=== PATIENT | male | born 1980 | race Caucasian/White ===

== ENCOUNTER 2016-05-29 05:53 | Emergency (ER) | payer SELFPAY ==
[2016-05-29] MEDS ORDERED: ACETAMINOPHEN 500 MG TABLET ONE (06:58)
[2016-05-29] MEDS ORDERED: IBUPROFEN 600 MG TABLET ONE (06:59)
[2016-05-29] MEDS ORDERED: HYDROCODONE/ACETAMINOPHEN 5/325MG TABLET ONE (06:59)
[2016-05-29] MEDS ORDERED: AMOX 875 MG/CLAV 125 MG 1 EACH TABLET ONE (06:59)
== END 2016-05-29 07:09 | disposition home or self-care (01) ==
LOC: ED 05:53
DX: H66.91 Otitis media, unspecified, right ear (principal); F17.210 Nicotine dependence, cigarettes, uncomplicated
CPT/HCPCS: 99283 ×2; A9270 ×4